=== PATIENT | male | born 1940 | race Caucasian/White ===

== ENCOUNTER 2021-09-11 08:00 | Outpatient (CLI) | payer OTHER ==
[2021-09-11 20:35] LABS: BASOPHILS # (AUTO) 0.1 10^3/uL (0.0-0.1); BASOPHILS % (AUTO) 0.8 %; EOSINOPHILS # (AUTO) 0.2 10^3/uL (0.0-0.7); EOSINOPHILS % (AUTO) 2.6 %; HCT - HEMATOCRIT 41.6 % (42.0-52.0); HGB - HEMOGLOBIN 13.1 g/dL (14.0-18.0); LYMPHOCYTES % (AUTO) 16.1 %; MEAN CORPUSCULAR HEMOGLOBIN 26.8 pg (27.0-31.0); MEAN CORPUSCULAR HGB CONC 31.5 g/dL (32.0-36.0); MEAN CORPUSCULAR VOLUME 85.2 fL (80.0-94.0); MEAN PLATELET VOLUME 9.8 fL (7.4-11.4); MONOCYTES # (AUTO) 0.5 10^3/uL (0.0-1.0); MONOCYTES % (AUTO) 7.8 %; NEUTROPHILS # (AUTO) 4.7 10^3/uL (1.5-6.6); NEUTROPHILS % (AUTO) 72.2 %; PLT - PLATELET COUNT 236 10^3/uL (130-450); RED BLOOD COUNT 4.88 10^6/uL (4.70-6.10); RED CELL DISTRIBUTION WIDTH 13.2 % (12.0-15.0); WHITE BLOOD COUNT 6.4 x10^3/uL (4.8-10.8)
[2021-09-11 20:37] LABS: ALBUMIN 3.7 g/dL (3.2-5.5); ALBUMIN/GLOBULIN RATIO 1.2 (1.0-2.2); BILIRUBIN,TOTAL 0.5 mg/dL (0.2-1.0); CALCIUM 9.2 mg/dL (8.5-10.3); CREATININE 0.9 mg/dL (0.6-1.2); POTASSIUM 3.7 mmol/L (3.5-5.0); TOTAL PROTEIN 6.9 g/dL (6.7-8.2)
== END 2021-09-11 23:59 ==
LOC: LAB.S 08:00
PROVIDERS: ATTEND Registered Nurse
DX: R30.0 Dysuria (principal)
CPT/HCPCS: 36415; 80053; 82550; 82553; 85025; 85651; 87086

== ENCOUNTER 2021-10-24 08:00 | Outpatient (CLI) | payer MEDICARE, MEDICAID ==
--- NOTE | 2021-10-24 14:23 | XRAY Report ---
PROCEDURE: Toe(s) RT INDICATIONS: CONTUSION OF GREAT TOE RIGHT FOOT TECHNIQUE: 3 views of the for toe(s) acquired. COMPARISON: None FINDINGS: Bones: There is a small nondisplaced vertical lucency at the articular surface of the distal first ph alanx, seen only on one view.. No suspicious bony lesions. Soft tissues: No suspicious soft tissue densities. IMPRESSION: Small nondisplaced vertical lucency at the articular surface at the base of the first distal phalanx. This could be artifactual. However, recommend correlation to point tenderness as underlying fracture cannot be definitively excluded given presence of recent trauma. Reviewed by: Juju Jordan MD on 10/24/2021 2:22 PM PDT Approved by: Juju Jordan MD on 10/24/2021 2:22 PM PDT Station ID: [id number]
== END 2021-10-24 23:59 | disposition home or self-care (01) ==
LOC: DI.S 08:00
PROVIDERS: ATTEND Physician Assistant Medical
DX: R93.6 Abnormal findings on diagnostic imaging of limbs (principal); T14.8XXA Other injury of unspecified body region, initial encounter
CPT/HCPCS: 87070; 87205

== ENCOUNTER 2021-10-24 08:00 | Outpatient (CLI) | payer MEDICARE | END 2021-10-24 08:01 | disposition home or self-care (01) | LOC: LAB.S 08:00 | PROVIDERS: ATTEND Physician Assistant Medical | DX: T14.8XXA Other injury of unspecified body region, initial encounter (principal) | CPT/HCPCS: 87070; 87205 ==

== ENCOUNTER 2022-11-17 08:00 | Outpatient (CLI) | payer MEDICARE, MEDICAID | END 2022-11-17 23:59 | disposition home or self-care (01) | LOC: LAB 08:00 | PROVIDERS: ATTEND Registered Nurse | DX: L03.90 Cellulitis, unspecified (principal) | CPT/HCPCS: 87070; 87181; 87205 ==

== ENCOUNTER 2022-12-05 10:30 | Outpatient (CLI) | payer MEDICARE, MEDICAID ==
--- NOTE | 2022-12-05 13:07 | XRAY Report ---
PROCEDURE: Shoulder 3 View LT INDICATIONS: SHOULDER PAIN LEFT TECHNIQUE: 3 views of the shoulder were acquired. COMPARISON: None. FINDINGS: Bones: No fracture or dislocation. Moderate acromioclavicular and mild to moderate glenohumeral dege nerative changes. Soft tissues: Prominent left hilar structures, probably prominent vessels in the setting of low lung volumes, but not well evaluated. Consider chest radiograph correlation. No suspicious calcifications . IMPRESSION: Degenerative bone/joint changes. If there is high concern for further derangement, consider MRI evalu ation. Prominent left pulmonary hilar suspected vascular structures, consider chest radiograph correlation. Reviewed by: Arslan Wilkes MD on 12/05/2022 1:05 PM PDT Approved by: Arslan Wilkes MD on 12/05/2022 1:05 PM PDT Station ID: [id number]
== END 2022-12-05 10:45 | disposition home or self-care (01) ==
LOC: DI.N 10:30
PROVIDERS: ATTEND Family Medicine
DX: M19.012 Primary osteoarthritis, left shoulder (principal)

== ENCOUNTER 2023-06-05 09:14 | Observation (INO) | payer MEDICARE, MEDICAID ==
--- NOTE | 2023-06-05 09:44 | ED Physician Documentation ---
PD HPI DYSPNEA - Stated complaint Stated Complaint: LIGHT HEADED/SOA - Chief complaint Chief Complaint: Cardiac - History obtained from History obtained from: Patient - History of Present Illness Timing - onset: How many weeks ago (2) Timing - onset during: Rest Timing - duration: Weeks (2) Timing - details: Abrupt onset, Still present Improved by: Rest Worsened by: Exertion Associated symptoms: Chest pain / discomfort. No: Fever, Cough, Hemoptysis, Wheezing Similar symptoms before: Has not had sx before Recently seen: Not recently seen - Additional information Additional information: 83-year-old Kurtis Becerra has a history of hypertension and osteoarthritis and about 2 weeks ago he began to feel palpitations at night in bed. He has subsequently developed exertional dyspnea which he noticed walking up a hill. He has persistence of these symptoms and today he developed some pain in his chest. He called the advice nurse who directed him to the hospital as she noted his heart rate to be over 130. The patient states that he has not otherwise been ill and he does not seem to notice this palpitation in his chest during the day. Review of Systems Constitutional: denies: Fever, Chills, Myalgias Eyes: denies: Decreased vision Ears: denies: Ear pain Nose: denies: Congestion Throat: denies: Oral lesions / sores, Sore throat Cardiac: reports: Chest pain / pressure, Palpitations. denies: Pedal edema, Calf pain Respiratory: reports: Dyspnea, Cough GI: denies: Abdominal Pain, Abdominal Swelling, Nausea, Vomiting, Constipation, Diarrhea : denies: Dysuria, Frequency PD PAST MEDICAL HISTORY - Past Medical History Cardiovascular: Hypertension, High cholesterol Respiratory: None Endocrine/Autoimmune: None GI: None : None HEENT: None Psych: None Musculoskeletal: Osteoarthritis Derm: None - Past Surgical History Past Surgical History: Yes General: Hiatal hernia repair Ortho: Hip replacement - Present Medications Home Medications: Ambulatory Orders Medication Instructions Recorded Confirmed Cholesterol 11/06/15 Heartpill 11/06/15 L.acidoph/L.rhamn/B.bif/B.long 1 mg PO DAILY 11/06/15 11/06/15 [Probiotic Acidophilus Biobeads] bisacodyL [Dulcolax] 1 mg PO DAILY 11/06/15 11/06/15 - Allergies Allergies/Adverse Reactions: Allergies Allergy/AdvReac Type Severity Reaction Status Date / Time No Known Drug Allergies Allergy Verified 11/06/15 06:29 - Social History Does the pt smoke?: No Smoking Status: Never smoker Does the pt drink ETOH?: Yes Does the pt have substance abuse?: No - Immunizations Immunizations are current?: Yes - POLST Patient has POLST: No PD ED PE NORMAL - Vitals Vital signs reviewed: Yes (tachy and hypertensive ) - General General: Alert and oriented X 3, No acute distress, Well developed/nourished - HEENT HEENT: Atraumatic, PERRL, EOMI - Neck Neck: Supple, no meningeal sign, No bony TTP - Cardiac Cardiac: No murmur, Other (rapid irregularly irregular heart rate) - Respiratory Respiratory: No respiratory distress, Clear bilaterally - Abdomen Abdomen: Soft, Non tender - Back Back: No CVA TTP, No spinal TTP - Derm Derm: Normal color, Warm and dry, No rash - Extremities Extremities: No deformity, No edema - Neuro Neuro: Alert and oriented X 3, mail sorter and delivery 2-12 intact, No motor deficit, No sensory deficit, Normal speech Eye Opening: Spontaneous Motor: Obeys Commands Verbal: Oriented GCS Score: 15 - Psych Psych: Normal mood, Normal affect Results - Vitals Vitals: Vital Signs - 24 hr 06/05/23 06/05/23 06/05/23 09:30 11:06 12:00 Temperature 36.5 C 36.8 C Heart Rate 130 H 131 H 126 H Respiratory 20 18 20 Rate Blood Pressure 138/88 H 120/99 H 114/94 H O2 Saturation 100 99 98 06/05/23 06/05/23 06/05/23 12:30 13:00 13:30 Temperature Heart Rate 132 H 128 H 130 H Respiratory 18 16 24 Rate Blood Pressure 117/97 H 123/100 H 125/100 H O2 Saturation 98 98 94 06/05/23 06/05/23 14:00 14:30 Temperature 36.8 C Heart Rate 128 H 128 H Respiratory 24 18 Rate Blood Pressure 126/100 H 122/95 H O2 Saturation 96 96 Oxygen O2 Source Room air - EKG (time done) 0933 EKG releavant findings:: EKG personally interpreted by author of this note. Relevant findings are: Rate: Rate (enter#) (135) Rhythm: Atrial fibrillation Ischemia: Q waves (inferior ) Compare to prior EKG: Changed from prior EKG (SPT 11-06-2015 rhythm has changed to afib and the rate is faster. ) Computer interpretation: Agree with computer - Labs Labs: Laboratory Tests 06/05/23 06/05/23 06/05/23 10:08 10:08 10:08 WBC 7.5 RBC 4.55 L Hgb 12.9 L Hct 40.6 L MCV 89.2 MCH 28.4 MCHC 31.8 L RDW 13.0 Plt Count 240 MPV 9.4 Neut # (Auto) 5.8 Lymph # (Auto) 1.0 L [place] # (Auto) 0.5 Eos # (Auto) 0.2 Baso # (Auto) 0.1 Absolute Nucleated RBC 0.00 Nucleated RBC % 0.0 D-Dimer Sodium 141 Potassium 3.4 L Chloride 107 Carbon Dioxide 27 Anion Gap 7.0 BUN 18 Creatinine 0.9 Estimated GFR (MDRD) 81 L Glucose 122 H Calcium 9.1 Magnesium 1.8 Total Bilirubin 0.7 AST 56 H ALT 80 H Alkaline Phosphatase 98 Troponin I High Sens 8.2 B-Natriuretic Peptide 509 H Total Protein 6.7 Albumin 3.9 Globulin 2.8 Albumin/Globulin Ratio 1.4 Lipase 18 Nasal Adenovirus (PCR) Nasal B. parapertussis DNA (PCR) Nasal Coronavir 229E PCR Nasal Coronavir HKU1 PCR Nasal Coronavir NL63 PCR Nasal Coronavir OC43 PCR Nasal Enterovir/Rhinovir PCR Nasal Influenza B PCR Nasal Influenza A PCR Nasal Parainfluen 1 PCR Nasal Parainfluen 2 PCR Nasal Parainfluen 3 PCR Nasal Parainfluen 4 PCR Nasal RSV (PCR) Nasal B.pertussis DNA PCR Nasal C.pneumoniae (PCR) Emanuel Human Metapneumo PCR Nasal M.pneumoniae (PCR) Nasal SARS-CoV-2 (PCR) 06/05/23 06/05/23 10:08 14:14 WBC RBC Hgb Hct MCV MCH MCHC RDW Plt Count MPV Neut # (Auto) Lymph # (Auto) [place] # (Auto) Eos # (Auto) Baso # (Auto) Absolute Nucleated RBC Nucleated RBC % D-Dimer 220.2 Sodium Potassium Chloride Carbon Dioxide Anion Gap BUN Creatinine Estimated GFR (MDRD) Glucose Calcium Magnesium Total Bilirubin AST ALT Alkaline Phosphatase Troponin I High Sens B-Natriuretic Peptide Total Protein Albumin Globulin Albumin/Globulin Ratio Lipase Nasal Adenovirus (PCR) NOT DETECTED Nasal B. parapertussis DNA (PCR) NOT DETECTED Nasal Coronavir 229E PCR NOT DETECTED Nasal Coronavir HKU1 PCR NOT DETECTED Nasal Coronavir NL63 PCR NOT DETECTED Nasal Coronavir OC43 PCR NOT DETECTED Nasal Enterovir/Rhinovir PCR NOT DETECTED Nasal Influenza B PCR NOT DETECTED Nasal Influenza A PCR NOT DETECTED Nasal Parainfluen 1 PCR NOT DETECTED Nasal Parainfluen 2 PCR NOT DETECTED Nasal Parainfluen 3 PCR NOT DETECTED Nasal Parainfluen 4 PCR NOT DETECTED Nasal RSV (PCR) NOT DETECTED Nasal B.pertussis DNA PCR NOT DETECTED Nasal C.pneumoniae (PCR) NOT DETECTED Emanuel Human Metapneumo PCR NOT DETECTED Nasal M.pneumoniae (PCR) NOT DETECTED Nasal SARS-CoV-2 (PCR) NOT DETECTED - Rads (name of study) Chest Relevant Findings:: Prelim report reviewed (Impression: Bilateral lower lobe interstitial infiltrates. Differential diagnoses are bilateral lower lobe pneumonia versus pulmonary edema.), EMP independent interpretation of test Procedures - IVC sono (time) 0953 Bedside IVC sono: IVC measures (cm) (0.92), Dehydration (est 1-2 liter deficit) PD Medical Decision Making - ED course Complexity details: reviewed old records, reviewed results, re-evaluated patient, considered differential, d/w patient Reviewed Lab Results: We reviewed a complete blood count showing a white blood count of 7.5 and hemoglobin of 12.9 hematocrit of 40.6 similar to patient's prior D-dimer was - 220 chemistry showed a potassium low at 3.4 AST and ALT were minimally elevated remainder of liver functions normal high-sensitivity troponin normal BNP elevated at 509 the viral nasal smear was negative. These laboratory results helped to rule out the pulmonary embolism as a cause of the patient's exertional dyspnea and it did help with ruling out an acute coronary syndrome. It does show the patient has not completely tolerated the rapid rate with elevation in the BNP. ED course: 83-year-old male with a 2-week history of night time palpitations has developed exertional dyspnea which has been progressive. He is found to have atrial fibrillation with rapid ventricular response and he is volume depleted. He is administered intravenous saline and diltiazem after placement on a engine monitor.Despite a dose of 20 mg of diltiazem the heart rate went from 140 to 130 a second dose of 25 mg resulted in reduction of the heart rate into the 120 range. The patient is placed onto a diltiazem drip and the drip is titrated from 5 to 10 to 15 mg/h and he is resistant to further decrease in his rate. His chest x-ray has appearance of pulmonary edema versus infiltrate and his BNP is elevated at 509. Troponin is negative. D-dimer is negative. At this point I have reached out to the hospitalist for admission for rate control and I have administered 50mg PO metoprolol tartrate. Departure - Departure Disposition: ED Place in Observation Clinical Impression: Atrial fibrillation with RVR
[2023-06-05] MEDS ORDERED: diltiaZEM INJ 5 MG/ML VIAL IVP STA ×2 (09:56→11:09)
[2023-06-05] MEDS ORDERED: SODIUM CHLORIDE 0.9% 1,000 ML IV STA (09:56)
[2023-06-05 10:22] LABS: BASOPHILS # (AUTO) 0.1 10^3/uL (0.0-0.1); BASOPHILS % (AUTO) 0.7 %; EOSINOPHILS # (AUTO) 0.2 10^3/uL (0.0-0.7); EOSINOPHILS % (AUTO) 2.7 %; HCT - HEMATOCRIT 40.6 % (42.0-52.0); HGB - HEMOGLOBIN 12.9 g/dL (14.0-18.0); LYMPHOCYTES % (AUTO) 12.6 %; MEAN CORPUSCULAR HEMOGLOBIN 28.4 pg (27.0-31.0); MEAN CORPUSCULAR HGB CONC 31.8 g/dL (32.0-36.0); MEAN CORPUSCULAR VOLUME 89.2 fL (80.0-94.0); MEAN PLATELET VOLUME 9.4 fL (7.4-11.4); MONOCYTES # (AUTO) 0.5 10^3/uL (0.0-1.0); MONOCYTES % (AUTO) 6.4 %; NEUTROPHILS # (AUTO) 5.8 10^3/uL (1.5-6.6); NEUTROPHILS % (AUTO) 77.3 %; PLT - PLATELET COUNT 240 10^3/uL (130-450); RED BLOOD COUNT 4.55 10^6/uL (4.70-6.10); WHITE BLOOD COUNT 7.5 x10^3/uL (4.8-10.8)
[2023-06-05 10:35] LABS: ALBUMIN 3.9 g/dL (3.2-5.5); ALBUMIN/GLOBULIN RATIO 1.4 (1.0-2.2); BILIRUBIN,TOTAL 0.7 mg/dL (0.2-1.0); CALCIUM 9.1 mg/dL (8.5-10.3); CREATININE 0.9 mg/dL (0.6-1.3); POTASSIUM 3.4 mmol/L (3.5-4.5); TOTAL PROTEIN 6.7 g/dL (6.4-8.9)
[2023-06-05] MEDS ORDERED: POTASSIUM CHLOR 10 MEQ/100 ML 10 MEQ/100 ML BAG IV STA (10:36)
[2023-06-05 10:43] LABS: TROPONIN I HIGH SENSITIVITY 8.2 ng/L (2.3-19.7)
[2023-06-05 10:57] LABS: MAGNESIUM 1.8 mg/dL (1.7-2.3)
--- NOTE | 2023-06-05 11:15 | XRAY Report ---
PROCEDURE: Chest 1 View X-Ray INDICATIONS: Chest pain TECHNIQUE: One view of the chest was acquired. COMPARISON: Chest x-ray, 11/06/2015. FINDINGS: Surgical changes and devices: None. Lungs and pleura: Bilateral lower lobe interstitial infiltrates. There is right diaphragmatic eventr ation. No pleural effusions or pneumothorax. Mediastinum: Mediastinal contours appear normal. Heart size is normal. Bones and chest wall: No suspicious bony lesions. Overlying soft tissues appear unremarkable. IMPRESSION: Bilateral lower lobe interstitial infiltrates. Differential diagnoses are bilateral lower lobe pneumo tate versus pulmonary edema. Reviewed by: Marsha Combs MD on 06/05/2023 11:13 AM PST Approved by: Marsha Combs MD on 06/05/2023 11:13 AM PST Station ID: [id number]
[2023-06-05] MEDS ORDERED: diltiaZEM INJ 125 MG in DEXTROSE 5% 100 ML IV STA (11:52)
[2023-06-05] MEDS ORDERED: METOPROLOL TARTRATE 50 MG TABLET PO STA (14:14)
[2023-06-05] MEDS ORDERED: ACETAMINOPHEN 325 MG TABLET PO PRN (15:00)
[2023-06-05] MEDS ORDERED: ONDANSETRON 4 MG/2 ML VIAL IVP PRN (15:00)
[2023-06-05] MEDS ORDERED: oxyCODONE 5 MG TABLET PO PRN (15:00)
[2023-06-05] MEDS ORDERED: ONDANSETRON ODT 4 MG TABLET TL PRN (15:00)
[2023-06-05] MEDS ORDERED: SODIUM CHLORIDE FLUSH 0.9% 10 ML SYRINGE IVP PRN (15:00)
[2023-06-05 15:12] LABS: B. PARAPERTUSSIS- RESP PCR PAN NOT DETECTED; B. PERTUSSIS- RESP PCR PANEL NOT DETECTED; C. PNEUMONIAE- RESP PCR PANEL NOT DETECTED; CORONAVIRUS 229E-RESP PCR NOT DETECTED; CORONAVIRUS HKU1-RESP PCR NOT DETECTED; CORONAVIRUS NL63-RESP PCR NOT DETECTED; CORONAVIRUS OC43-RESP PCR NOT DETECTED; HUMAN METAPNEUMOVIRUS NOT DETECTED; INFLUENZA A- RESP PCR PANEL NOT DETECTED; INFLUENZA B - RESP PCR PANEL NOT DETECTED; M. PNEUMONIAE- RESP PCR PANEL NOT DETECTED; PARAINFLUENZA VIRUS 1 NOT DETECTED; PARAINFLUENZA VIRUS 2 NOT DETECTED; PARAINFLUENZA VIRUS 3 NOT DETECTED; PARAINFLUENZA VIRUS 4 NOT DETECTED; RHINOVIRUS/ENTEROVIRUS NOT DETECTED; RSV- RESP PCR PANEL NOT DETECTED; SARS-CoV-2 -RESP PCR PANEL NOT DETECTED
--- NOTE | 2023-06-05 15:19 | HISTORY & PHYSICAL EXAMINATION ---
Chief Complaint - Chief Complaint Chief Complaint: Palpitation History of Present Illness - Admitted From Admitted From:: Home - History Obtained From [facility] History obtained from: Patient Exam Limitations: None - History of Present Illness HPI Comment/Other: 83-year-old male whose past medical history significant for hypertension and hyperlipidemia that was last seen in our emergency room in 2016 for some gastritis. His primary care provider is Dr. Radha Jama who is director of the primary care analytics team for the [facility] graphic staff. She also does clinic [facility] at the [place]. She has been his primary care provider since 1989. 2 weeks ago he started having what he felt was palpitations. He would lay down at night and he could really feel his heart. But during the day he felt fine but then he subsequently developed dyspnea on exertion when he walked up the hill. He denies any chest pain, edema, orthopnea. There is no swelling in his legs. He has had no recent change in his medications. He does not have any diarrhea or vomiting. He called the nurse line at the [facility] and the [facility] told him to come to the hospital. In our emergency room he was evaluated by the ER provider. Temperature was 36.5. Heart rate was 130. Respirations 20. Blood pressure 138/88. 100% saturated on room air. He was found to have atrial fibrillation on the EKG. Troponins were done and normal. BNP was slightly elevated at 509. Electrolytes had minimally low potassium at 3.4. BUN and creatinine were normal. Calcium and magnesium were normal. White scratch that CBC was normal. TSH was normal. Chest x-ray had bilateral lower lobe interstitial infiltrates with a differential diagnosis of either pneumonia versus pulmonary edema. The emergency room provider felt that he was a new onset A-fib. Ruled out an MA, ruled out thyroid disease, and did not feel PE was high in the differential. He gave him diltiazem injections twice. Metoprolol p.o. once. Patient still maintain a heart rate in the 130s so he started him on a diltiazem drip. Even with that the patient is still in the 130s. The case was discussed with the ER provider. We discussed that the differential diagnosis have been well-evaluated. Patient needed to be brought in for rate control. It is unknown when his A-fib started. Maybe 2 weeks ago but it is not clear. As such I am placing the patient in observation status in the ICU on a diltiazem drip and will aggressively begin giving him more medications to slow down his heart rate. I may also give him diuretics for the BNP and the changes of CHF on chest x-ray. History - Past Medical History Cardiovascular: reports: Hypertension, High cholesterol Respiratory: reports: None Neuro: reports: Peripheral neuropathy Endocrine/Autoimmune: reports: None GI: reports: None : reports: Other (Prostate cancer with resection) HEENT: reports: Chronic vision loss, Chronic hearing loss, Other (Cataracts. He is also going to see the eye doctor in June for some type of injection) Psych: reports: None Musculoskeletal: reports: Osteoarthritis, Chronic back pain Derm: reports: None MRSA Hx?: No - Past Surgical History General: reports: Cholecystectomy, Hiatal hernia repair Ortho: reports: Hip replacement, Spine surgery /COLLABORATIVE PHYSICIAN: reports: Other (TURP) HEENT: reports: Cataracts - Family & Social History Family History Comment/Other: Mom at age 65 of complications of angina. Dad in his 80s of complications of black lung as a minor. Sister in [place] is alive, healthy with no major medical issues. No children Living arrangement: At home Living Situation: Alone Social History Notes: Born and raised in [place]. Went into the [employer] for 3 years. Deployment in the [place] resulted in a love of photography. He has lived all over the country and ended up in [place]. Photography class sent him to [facility] and he followed with [facility] and has been living here since approximately 2011.Never smoked. Did drink when he was a [employer] but never had a problem with alcohol. No recreational substance abuse. Lives by himself in subsidized senior housing across the street from the hospital. Does not drive. [facility]. Leaves at 5 in the morning comes back at 6:00 at night. - Substance History Use: Uses substance without health or social issues: NONE Abuse: Recurrent use of substance despite neg consequences: NONE Dependence: Experiences withdrawal or developed tolerances: NONE - POLST Patient has POLST: No POLST Status: Full Code Meds/Allgy - Home Medications Home Medications: Ambulatory Orders Medication Instructions Recorded Confirmed Cholesterol 11/06/15 Heartpill 11/06/15 L.acidoph/L.rhamn/B.bif/B.long 1 mg PO DAILY 11/06/15 11/06/15 [Probiotic Acidophilus Biobeads] bisacodyL [Dulcolax] 1 mg PO DAILY 11/06/15 11/06/15 - Allergies Allergies/Adverse Reactions: Allergies Allergy/AdvReac Type Severity Reaction Status Date / Time No Known Drug Allergies Allergy Verified 11/06/15 06:29 Review of Systems - Constitutional Constitutional: denies: Fatigue, Fever, Chills, Malaise, Weakness, Poor appetite - Eyes Eyes: reports: Vision loss. denies: Pain, Irritation - Ears, Nose & Throat Ears, Nose & Throat: reports: Hearing loss. denies: Ear pain, Hearing aids, Tinnitus, Sore throat, Hoarseness - Cardiovascular Cariovascular: reports: Irregular heart rate, Palpitations, Exertional dyspnea, Decr. exercise tolerance - Respiratory Respiratory: reports: SOB with exertion. denies: Cough, Sputum production, Wheezing, SOB at rest - Gastrointestinal Gastrointestinal: denies: Abdominal pain, Abdominal distention, Constipation, Diarrhea, Change in bowel habits - Genitourinary Genitourinary: denies: Dysuria, Frequency, Urgency, Incontinence, Flank pain - Musculoskeletal Musculoskeletal: reports: Back pain, Stiffness. denies: Muscle pain - Integumentary Integumentary: reports: Other (He has had skin cancers removed in his back). denies: Rash, Pruritis - Neurological Neurological: reports: Other (Twice his feet have felt like they were "stuck to the ground" and he is fallen. He has an intermittent resting hand tremor.). denies: General weakness, Focal weakness, Headache, Dizziness, Memory problems, Pre-existing deficit - Psychiatric Psychiatric: denies: Depression, Anxiety, Suicidal, Delusions, Hallucinations - Endocrine Endocrine: denies: Polyuria, Polydypsia, Polyphagia - Hematologic/Lymphatic Hematologic/Lymphatic: denies: Anemia, Bruising, Petechiae Prior Level of Functionality: Independent with activities of daily living. Dresses himself, feeds himself. Lately he has been wondering if he needs a cane because he has had 2 falls, and he has developed intermittent hand tremors. He does not drive and [place] [facility] and it takes forever. He has been slowing down over the last few months but not in any meaningful way. He still able to do all the things he wants to do is just taking longer. He lives alone. He does have friends but not any social network that would be able to take care of him if he were to need help. He is only living relative lives in [place]. Exam - Vital Signs Reviewed Vital Signs: Yes Vital Signs: Vital Signs x48h Temp Pulse Resp BP Pulse Ox 06/05/23 14:30 128 H 18 122/95 H 96 06/05/23 14:00 36.8 C 128 H 24 126/100 H 96 06/05/23 13:30 130 H 24 125/100 H 94 06/05/23 13:00 128 H 16 123/100 H 98 06/05/23 12:30 132 H 18 117/97 H 98 06/05/23 12:00 36.8 C 126 H 20 114/94 H 98 06/05/23 11:06 131 H 18 120/99 H 99 06/05/23 09:30 36.5 C 130 H 20 138/88 H 100 - Physical Exam General Appearance: positive: No acute distress, Alert Eyes Bilateral: positive: PERRL, EOMI ENT: positive: Pharynx nml, No signs of dehydration Neck: positive: No JVD. negative: Stiff neck Respiratory: positive: No respiratory distress. negative: Wheezes, Rales, Rhonchi Cardiovascular: positive: Regular rate & rhythm (Within minutes of coming to the ICU he converted to sinus rhythm). negative: Tachycardia Peripheral Pulses: positive: 1+ Abdomen: positive: Non-tender, No organomegaly, Nml bowel sounds, No distention Skin: positive: Warm, Dry Extremities: positive: Full ROM, No pedal edema Neurologic/Psychiatric: positive: Oriented x3, CN's nml (2-12), Motor nml (Very faint tremor but it is not always present when he holds out his hands for me. No cogwheel rigidity. No bradykinesia of the face but there is minimal spontaneous smiling) Conclusion/Plan - Problem List (1) New onset atrial fibrillation Conclusion/Plan: Fast heart rate resulting in probable mild congestive heart failure. MA ruled out. TSH normal. Low probability of PE according to ER provider. Patient was started on diltiazem drip in the emergency room and still had difficulty with rate control so was transferred to the ICU. Once in the ICU, I gave him a 50 mg dose of metoprolol in addition to the 50 mg he got in the ER. He spontaneously converted to sinus rhythm on his own. He is now resting comfortably. Plan: Observation status Stop diltiazem drip and given Cardizem CD 120 mg daily Start eliquis 5 mg po bid for A [id number] score of 4 points. Age, sex, CHF on exam on the x-ray, hypertension give him the 4 points. He will need to follow-[facility] with [facility] for the next steps. Unfortunately our human performance technologist is not scheduled after . He will need to get an echo, probable stress test, and some type of monitoring device to verify whether this patient is staying in sinus rhythm or if he is going in and out of sinus with A-fib. I do not know his primary care provider is comfortable doing all of this workup on her own or will she refer him to cardiology? (2) Acute congestive heart failure Conclusion/Plan: At this point this patient does not have any history of cardiac disease. He has not had any recent MA. No history of rheumatic fever or valvular heart diseas e. He has not had COVID. Is not clear if he is Diastolic or systolic heart failure. However chest x-ray has bibasilar infiltrates, lung exam has crackles, and BNP is elevated. Plan: Lasix 20 mg IV push x 1 Repeat BMP in the morning. Qualifiers: Heart failure type: unspecified Qualified Code(s): I50.9 - Heart failure, unspecified (3) Hypokalemia Conclusion/Plan: po kdur for 40 meq x 1 then repeat BMP (4) Difficulty navigating healthcare system Conclusion/Plan: Although he is safely and successfully lived on the [place] and navigated the transit system to get to [place] for the last few years, it is getting more difficult for him. He is seeking to transfer his care to the [facility] in [place]. I told him that he should also seek to establish himself with a primary care provider on the [place]. He is interested in seeing a clinician either in [place] or [place]. I did ask him if he had plans for the future when he can no longer take care of himself. He plans on using his Medicaid benefit to get a [place] provider to help take care of him. When that is failing, he plans to transition to hospice. Tomorrow morning I will type up of list of providers at the [facility] in [place]. I will also email his primary care provider at the [place] and ask where his records should be sent for this encounter. And then I will give him a list of the care providers in the [facility] in [facility] that are taking patients. (5) History of fall Conclusion/Plan: He tells me that his "feet are stuck to the ground" a couple of times. Once was at the [place] where his rubber shoes got stuck on the linoleum at their floor and he fell. But he also describes feeling off balance more in the last few years. And he describes an intermittent hand tremor. I did share with him that he could have early Parkinson's disease and he was very unhappy with that news. I told him there is not much to do. The disease will either manifest itself or I could be wrong and is not going to manifest itself. But he should keep that in the back of his mind and share that with his primary care provider in case he needs to be referred to a future neurology appointment. In the meantime I strongly recommend he uses a cane to keep his balance. Especially in view of the fact that he has a peripheral neuropathy - Lab Results Lab results reviewed: Yes Mati Bones: 06/05/23 10:08 06/05/23 10:08 - EKG Results EKG Interpreted Independently: No Core Measures - Anticipated LOS I expect patient to be DC'd or transferred within 96 hours.: Yes - DVT/VTE - Prophylaxis VTE/DVT Prophylaxis med ordered at admit?: Yes
[2023-06-05] MEDS ORDERED: FUROSEMIDE 20 MG/2 ML VIAL IVP STA (15:20)
[2023-06-05] MEDS: SODIUM CHLORIDE FLUSH 0.9% 10 ML SYRINGE IVP SCH (17:29)
[2023-06-05] MEDS ORDERED: diltiaZEM 30 MG TABLET PO SCH (18:00)
[2023-06-05] MEDS: diltiaZEM CD 120 MG CAPSULE PO SCH (18:54)
[2023-06-05] MEDS ORDERED: diltiaZEM INJ 125 MG in DEXTROSE 5% 100 ML IV SCH (21:00)
[2023-06-05] MEDS: POTASSIUM CHLORIDE 20 MEQ TABLET PO SCH ×2 (21:23→23:39)
[2023-06-05] MEDS: APIXABAN 5 MG TABLET PO SCH (21:24)
[2023-06-05] MEDS: METOPROLOL TARTRATE 50 MG TABLET PO SCH (21:24)
[2023-06-06] MEDS: SODIUM CHLORIDE FLUSH 0.9% 10 ML SYRINGE IVP SCH ×3 (00:04→10:57)
[2023-06-06 05:27] LABS: CALCIUM, IONIZED 1.13 mmol/L (1.15-1.33); VBG PH 7.419 (7.31-7.41)
[2023-06-06 06:07] LABS: MAGNESIUM 1.7 mg/dL (1.7-2.3); PHOSPHORUS 4.2 mg/dL (2.5-5.0)
[2023-06-06 06:09] LABS: CREATININE 0.8 mg/dL (0.6-1.3); POTASSIUM 3.8 mmol/L (3.5-4.5)
[2023-06-06] MEDS ORDERED: POTASSIUM CHLORIDE 20 MEQ TABLET PO ONE (06:25)
[2023-06-06] MEDS ORDERED: MAGNESIUM OXIDE 400 MG TABLET PO SCH (08:00)
[2023-06-06] MEDS: diltiaZEM CD 120 MG CAPSULE PO SCH (09:18)
[2023-06-06] MEDS: METOPROLOL TARTRATE 50 MG TABLET PO SCH (09:18)
[2023-06-06] MEDS: APIXABAN 5 MG TABLET PO SCH (09:18)
[2023-06-06] MEDS ORDERED: FUROSEMIDE 20 MG/2 ML VIAL IVP STA (10:36)
--- NOTE | 2023-06-06 10:39 | PHARMACY PROGRESS NOTE ---
- Best Possible Medication History Admit Date and Time: 06/05/23 1500 Processed by: Pharmacy Medication History completed: Yes Patient Interview: Pt interview ONLY source As the person ultimately responsible for medication therapy, providers are able to order a medication from an existing home medication list in [facility] via the "Reconcile Routine" prior to Confirmation of that medication by residential support specialist. Such practice is discouraged except when the physician, in their clinical judgment, deems that a medical need exists for a medication without regard to previous use.
--- NOTE | 2023-06-06 11:13 | Discharge Plan ---
Discharge Plan Problem Reviewed?: Yes Disposition: Home, Self Care Condition: Fair Prescriptions: diltiaZEM CD [Cardizem Cd] 120 mg PO DAILY #30 Apixaban [Eliquis] 5 mg PO BID #60 tablet Furosemide [Lasix] 20 mg PO DAILY #30 tablet Potassium Chloride 20 meq PO DAILY #30 tab Rivaroxaban [Xarelto] 20 mg PO DAILY #30 tablet Diet: Low Sodium Activity Restrictions: Activity as Tolerated Shower Restrictions: No Driving Restrictions: No Health Concerns: You walked to our emergency room from your home because you would call the [place] nurse line and they recommended you come in. You have been having palpitations for about 2 weeks and had also subsequently developed dyspnea or shortness of breath with exertion. When he came to our emergency room you were found to have a new irregular heart rate called atrial fibrillation. Your atrial fibrillation had a very fast heart rate for a gentleman your age. You are at approximately 130 or 140 heart beats per minute. This was then causing you to have mild congestive heart failure with fluid back up into your lungs. We started you on medication to slow down your heart rate. I gave you a diuretic which makes you urinate quite a bit. Your heartbeat then return to a normal sinus rhythm on its own. Atrial fibrillation can increase your risk of stroke because the irregular heart rate causes small clots to develop within your heart chambers. Then 1 of those clots can be pumped out of your heart, downstream, into your brain to give you a small stroke. The risk is about 8 to 12%. To reduce that risk I started you on a blood thinner. Plan of Treatment: 1. I have called 2 blood thinners into the pharmacy. One is Xarelto and one is Eliquis. I am having the pharmacist decide which is cheaper for you and that is the prescription you will pickle solution maker on Thursday. If you pickle solution maker Xarelto it is a 20 mg tablet once a day. If you pickle solution maker Eliquis it is 5 mg tablet twice a day. Since the pharmacy is not open today, you will be sent home with the blood thinner to cover you until Thursday morning when you pickle solution maker the prescriptions. 2. Because you are now on a blood thinner you cannot take any medications such as aspirin, ibuprofen, Aleve, Naprosyn, diclofenac, Motrin, etc. The only [id number] pain medicine you can take is Tylenol. Or acetaminophen. 3. You need to follow-up with your primary care provider Abby Jama who is your primary care provider at the [facility] in [place]. I have already sent her an email notifying her that you are here. I also sent her a fax. I would like you to see her in the next 1 to 2 weeks. If you cannot see her, see anybody in her clinic. And if you cannot get any body to see you in the next 2 to 3 weeks, please go to the urgent care clinic in [place] to have continuity of care. 4. To continue working up why you went into can just of heart failure and atrial fibrillation, the next steps are to get an echocardiogram of your heart. It is an ultrasound of your heart. And most likely will also need a stress test. Those 2 tests will determine the prognosis of your atrial fibrillation. It would let us know how long you will be on medications. So Dr. Jama may choose to order them on her own, or she will refer you to a inpatient nursing aide. 5. Because the atrial fibrillation gave you temporary congestive heart failure, I am also sending you home on a water pill called Lasix/furosemide 20 mg tablet once a day. And potassium supplement in the form of potassium chloride/K-Dur 20 mEq once a day. 6. To keep your heart rate and irregular rhythm, I am prescribing Cardizem CD 120 mg capsule once a day. You will stop your amlodipine that is on the list that you keep in a laminated card in your wallet. 7. You stated that it is getting a little bit hard for [facility] to get [facility]. You take the [place] transit down to [place]. Get on the ferr. And they take transit to the [place]. 1 visit starts at 5:30 in the morning and can last you till 6:30 in the evening before you get home. As such, I am recommending that you might want to consider changing your care to a different clinic office. Option #1 is to transfer your care to the [facility] in [place]. [address] [facility] [phone] Option #2 is to stay with the [facility]. Because you have Medicaid, you can get a Medicaid voucher for a cab will take you to your appointment. They Would wait and bring you back. You were told about this but you feel self-conscious about doing this because you would be taking up an en tire cab just for yourself. That is what Medicaid is for. To allow you to have the opportunities that allow you to maintain stable relationship with your doctor and maintain stable medical care. Option #3 is to continue seeing your primary care provider once a year at the [place]. But change most of your quarterly care where you are seen every 3 months at a local clinic, [facility]. They have Primary Care [address] in [place] [phone] and Primary Care in [place] [phone]. Linda Prescott and Yolette Moreno in [place]. Leyda Fabian and Alexandria Verdin in [place]. Please call those clinics to establish yourself there if you want to. Again, you can also see your primary care provider in [facility] once a year to maintain that relationship as well as the one [place] the [place]. Care Goals: You would like to be able to have this new medical issue taking care of as soon as possible. Long-term goal is to remain in your apartment for as long as possible. Once you can no longer take care of yourself you are hoping to avail yourself of the [employer]OH[employer] program through Medicaid to stay in your apartment. If you are starting to become ill enough that you would have to leave your [place] for [facility], you would prefer to be transition to hospice Assessment: Patient is alert, oriented, occasionally forgetful. Overwhelmed with too much data at once. But is using opportunities through [employer], and social work. No Smoking: If you smoke, Please STOP! Call for help.
[2023-06-06 14:30] VITALS: BP 124/84; O2SAT 96
--- NOTE | 2023-06-06 20:20 | DISCHARGE SUMMARY ---
Discharge Summary Admit Date: 06/05/23 Discharge Date: 06/06/23 Discharging Provider: Peggy Knutson MD Primary Care Provider: Radha Jama MD Code Status: Attempt Resuscitation Condition at Discharge: Fair Discharge Disposition: 01 Home, Self Care - DIAGNOSES Discharge Diagnoses with Status of Each Condition: 1. New onset atrial fibrillation 2. Acute congestive heart failure 3. Hypokalemia 4. Difficulty navigating healthcare system 5. History of fall - HPI History of Present Illness: 83-year-old male whose past medical history significant for hypertension and hyperlipidemia that was last seen in our emergency room in 2016 for some gastritis. His primary care provider is Dr. Radha Jama who is director of the primary care analytics team for the [facility] graphic staff. She also does clinic on at the [place]. She has been his primary care provider since 1989. 2 weeks ago he started having what he felt was palpitations. He would lay down at night and he could really feel his heart. But during the day he felt fine but then he subsequently developed dyspnea on exertion when he walked up the hill. He denies any chest pain, edema, orthopnea. There is no swelling in his legs. He has had no recent change in his medications. He does not have any diarrhea or vomiting. [facility] [place] [facility] In our emergency room he was evaluated by the ER provider. Temperature was 36.5. Heart rate was 130. Respirations 20. Blood pressure 138/88. 100% saturated on room air. He was found to have atrial fibrillation on the EKG. Troponins were done and normal. BNP was slightly elevated at 509. Electrolytes had minimally low potassium at 3.4. BUN and creatinine were normal. Calcium and magnesium were normal. White scratch that CBC was normal. TSH was normal. Chest x-ray had bilateral lower lobe interstitial infiltrates with a differential diagnosis of either pneumonia versus pulmonary edema. The emergency room provider felt that he was a new onset A-fib. Ruled out an DC, ruled out thyroid disease, and did not feel PE was high in the differential. He gave him diltiazem injections twice. Metoprolol p.o. once. Patient still maintain a heart rate in the 130s so he started him on a diltiazem drip. Even with that the patient is still in the 130s. The case was discussed with the ER provider. We discussed that the differential diagnosis have been well-evaluated. Patient needed to be brought in for rate control. It is unknown when his A-fib started. Maybe 2 weeks ago but it is not clear. As such I am placing the patient in observation status in the ICU on a diltiazem drip and will aggressively begin giving him more medications to slow down his heart rate. I may also give him diuretics for the BNP and the changes of CHF on chest x-ray. - Past Medical History Cardiovascular: reports: Hypertension, High cholesterol Respiratory: reports: None Neuro: reports: Peripheral neuropathy Endocrine/Autoimmune: reports: None GI: reports: None : reports: Other (Prostate cancer with resection) HEENT: reports: Chronic vision loss, Chronic hearing loss, Other (Cataracts. 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 DC ruled out. TSH normal. Low probability of PE according to ER provider. Patient was started on diltiazem drip in the emergency room and still had difficulty with rate control so was transferred to the ICU. Once in the ICU, I gave him a 50 mg dose of metoprolol in addition to the 50 mg he got in the ER. He spontaneously converted to sinus rhythm on his own. He is now resting comfortably. I changed him to Cardizem CD 120 mg a day. Because of his Chads-Vasc of 4 points he was started on Eliquis. Eliquis is on our drug formulary. I explained to him that he will need outpatient workup with his primary care provider. He will need an echocardiogram, probably a stress test, and a monitoring device to verify whether this patient is staying in sinus rhythm or if he is going in and out of atrial fibrillation. I explained to him that his primary care provider may be ordering all of this or may be referring him to a porcelain technician to do this. We were also unclear about what his prescription plan would pay for. As such I sent Xarelto, Eliquis, and Pradaxa to the pharmacy asking which was cheapest. The patient was discharged. We gave him enough medication to get him through the weekend and Thursday morning he spoke to the pharmacy. The Pradaxa was $200 a month. The Eliquis was close to $500 a month. And Xarelto was most expensive at close to $800 a month. The patient is on a fixed limited income. We then thought about doing Coumadin. But because he uses the [place] as his primary care clinic, there is no way he can go to a Coumadin clinic once a day to adjust his Coumadin. Our case specialist then spoke to his primary care provider office. They have asked us to fax our choice of medications which will be Xarelto at 20 mg a day. And fax the medications to the [place] pharmacy at [phone]. To make sure that we use his last 4 if his social security number on the prescriptions and they will overnight send medication to him. As such I have written for his Lasix, potassium, Xarelto, and Cardizem CD. (2) Acute congestive heart failure Conclusion/Plan: At this point this patient does not have any history of cardiac disease. He has not had any recent DC. No history of rheumatic fever or valvular heart disease. He has not had COVID. Is not clear if he is Diastolic or systolic heart failure. However chest x-ray has bibasilar infiltrates, lung exam has crackles, and BNP is elevated.He received Lasix IV push in the hospital. I changed him over to Lasix p.o. in the outpatient setting. I explained to him that I do not know how long he will need this. If his echocardiogram comes back normal, he is acute congestive heart failure may have been due to tachycardia and he may be able to come off of these. But again he needs to follow-up with his primary care provider or porcelain technician about what is going to happen. (3) Hypokalemia Conclusion/Plan: He received potassium I supplemented his potassium orally. At discharge he will be getting Lasix and a potassium prescription. He will need a BMP and a BNP in the next week. (4) Difficulty navigating healthcare system Conclusion/Plan: Although he is safely and successfully lived on the [place] and [facility] [facility] the [facility], it is getting more difficult for him. He is seeking to transfer his care to the [facility] in [place]. I told him that [place]. [place] a clinician either in [place] or [place]. I did ask him if he had plans for the future when he can no longer take care of himself. He plans on using his Medicaid benefit to get a coax provider to help take care of him. When that is failing, he plans to tra nsition to hospice. I have given him a list and phone numbers of the [facility] clinics in [place] and [place]. I have also emailed his primary care provider at the [place] and asked where I could send his records. I also gave him the list of the primary care providers in our community clinics in [place] and [place]. (5) History of fall Conclusion/Plan: He tells me that his "feet are stuck to the ground" a couple of times. [facility] got stuck on the linoleum at their floor and he fell. But he also describes feeling off balance more in the last few years. And he describes an intermittent hand tremor. I did share with him that he could have early Parkinson's disease and he was very unhappy with that news. I told him there is not much to do. The disease will either manifest itself or I could be wrong and is not going to manifest itself. But he should keep that in the back of his mind and share that with his primary care provider in case he needs to be referred to a future neurology appointment. In the meantime I strongly recommend he uses a cane to keep his balance. Especially in view of the fact that he has a peripheral neuropathy At discharge he is alert oriented elderly gentleman. It was a pleasure to have met him in taking care of him. Temperature is 36.9. Pulse is 69 and sinus. Blood pressure 124/84. Respirations 20. 96% on room air. He is 5 foot 11 inches tall, 97 kg. No JVD. Clear lungs. Regular rate and rhythm. And abdomen that soft, nontender. Extremities with trace edema. This document was made in part using voice recognition software. While efforts are made to proofread this document, sound alike and grammatical errors may occur. - ALLERGIES Allergies/Adverse Reactions: Allergies Allergy/AdvReac Type Severity Reaction Status Date / Time No Known Drug Allergies Allergy Verified 11/06/15 06:29 - MEDICATIONS Home Medications: Ambulatory Orders Medication Instructions Recorded Confirmed Rivaroxaban [Xarelto] 20 mg PO DAILY #30 tablet 06/05/23 Aspirin Chewable [St Isauro 81 mg PO DAILY 06/06/23 06/06/23 Aspirin] Furosemide [Lasix] 20 mg PO DAILY #30 tablet 06/06/23 Multivitamin [Theragran] 1 each PO DAILY 06/06/23 06/06/23 Potassium Chloride 20 meq PO DAILY #30 tab 06/06/23 diltiaZEM CD [Cardizem Cd] 120 mg PO DAILY #30 06/06/23 Atorvastatin Calcium [Lipitor] 80 mg PO QPM 06/07/23 06/07/23 Omeprazole Magnesium 20 mg PO DAILY 06/07/23 06/07/23 lamoTRIgine [LaMICtal] 50 mg PO BID 06/07/23 06/07/23 - LABS Result Diagrams: 06/05/23 10:08 06/06/23 04:28
== END 2023-06-06 13:35 | disposition home or self-care (01) ==
LOC: ED 09:14 → ICU 15:00
PROVIDERS: ADMIT Specialist; ATTEND Specialist
DX: I48.91 Unspecified atrial fibrillation (principal); I11.0 Hypertensive heart disease with heart failure; I50.9 Heart failure, unspecified; E78.00 Pure hypercholesterolemia, unspecified; Z91.81 History of falling; E87.6 Hypokalemia; R91.8 Other nonspecific abnormal finding of lung field; R25.1 Tremor, unspecified; G62.9 Polyneuropathy, unspecified; Z85.46 Personal history of malignant neoplasm of prostate
CPT/HCPCS: 36415; 71045; 80048; 80053; 82330; 83690; 83735; 83880; 84100; 84132; 84484; 85025; 85379; 87633; 93005; 96374; 96375; 96376; 99284; 99285; A9270; G0378

== ENCOUNTER 2023-06-09 18:45 | Emergency (ER) | payer MEDICARE, MEDICAID ==
[2023-06-09] MEDS ORDERED: APIXABAN 5 MG TABLET PO STA (19:13)
--- NOTE | 2023-06-09 19:17 | ED Physician Documentation ---
History of Present Illness - Stated complaint Stated Complaint: CHEST PX/HBP - Chief complaint Chief Complaint: Cardiac - History obtained from History obtained from: Patient - History of Present Illness Timing: Today Pain level max: 0 Pain level now: 0 - Additonal information Additional information: Patient is an 83-year-old male who states he was admitted to the hospital recently and diagnosed with new onset atrial fibrillation with rapid ventricular response. He states that today he was at home and checked his blood pressure and it was in the 140s systolic. He checked it again and it was in the 150s. He checked it a third time and it went to 160. He decided he should come to the hospital at that point. His heart rate also increased from 68-72 during this time. He did not have any shortness of breath, headache, numbness or tingling. He is asymptomatic. He does state that he had a "half of the second" of left- sided chest discomfort. Review of Systems Constitutional: denies: Fever, Chills Nose: denies: Rhinorrhea / runny nose, Congestion GI: denies: Vomiting, Diarrhea Skin: denies: Rash Musculoskeletal: denies: Neck pain, Back pain Neurologic: denies: Headache, Head injury PD PAST MEDICAL HISTORY - Past Medical History Past Medical History: Yes Cardiovascular: Hypertension, High cholesterol Respiratory: None Neuro: Peripheral neuropathy Endocrine/Autoimmune: None GI: None : Other HEENT: Chronic vision loss, Chronic hearing loss, Other Psych: None Musculoskeletal: Osteoarthritis, Chronic back pain Derm: None - Past Surgical History Past Surgical History: Yes General: Cholecystectomy, Hiatal hernia repair Ortho: Hip replacement, 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) HEENT: Cataracts - Present Medications Home Medications: Ambulatory Orders Medication Instructions Recorded Confirmed Rivaroxaban [Xarelto] 20 mg PO DAILY #30 tablet 06/05/23 Aspirin Chewable [St Isauro 81 mg PO DAILY 06/06/23 06/06/23 Aspirin] Furosemide [Lasix] 20 mg PO DAILY #30 tablet 06/06/23 Multivitamin [Theragran] 1 each PO DAILY 06/06/23 06/06/23 Potassium Chloride 20 meq PO DAILY #30 tab 06/06/23 diltiaZEM CD [Cardizem Cd] 120 mg PO DAILY #30 06/06/23 Atorvastatin Calcium [Lipitor] 80 mg PO QPM 06/07/23 06/07/23 Omeprazole Magnesium 20 mg PO DAILY 06/07/23 06/07/23 lamoTRIgine [LaMICtal] 50 mg PO BID 06/07/23 06/07/23 - Allergies Allergies/Adverse Reactions: Allergies Allergy/AdvReac Type Severity Reaction Status Date / Time No Known Drug Allergies Allergy Verified 06/09/23 19:04 - Social History Does the pt smoke?: No Smoking Status: Never smoker Does the pt drink ETOH?: Yes Does the pt have substance abuse?: No - Immunizations Immunizations are current?: Yes - POLST Patient has POLST: No POLST Status: Full Code PD ED PE NORMAL - Vitals Vital signs reviewed: Yes - General General: Alert and oriented X 3, No acute distress - HEENT HEENT: PERRL, Moist mucous membranes - Neck Neck: Supple, no meningeal sign - Cardiac Cardiac: RRR, Strong equal pulses - Respiratory Respiratory: No respiratory distress, Clear bilaterally - Abdomen Abdomen: Soft, Non tender, Non distended - Derm Derm: Warm and dry - Extremities Extremities: No edema, No calf tenderness / cord - Neuro Neuro: Alert and oriented X 3 - Psych Psych: Normal mood, Normal affect Results - Vitals Vitals: Vital Signs - 24 hr 06/09/23 06/09/23 18:48 19:25 Temperature 36.6 C Heart Rate 70 70 Respiratory 16 20 Rate Blood Pressure 149/83 H 148/84 H O2 Saturation 96 94 Oxygen O2 Source Room air - EKG (time done) 1852 EKG releavant findings:: EKG personally interpreted by author of this note. Relevant findings are: Rate: Rate (enter#) (71) Rhythm: NSR [place]: Normal Intervals: Normal OR QRS: Normal Ischemia: Normal ST segments, Other (early R wave transition) PD Medical Decision Making - ED course Complexity details: considered differential, d/w patient ED course: In accordance with the [facility] clinical policy from July 2012, this patient has asymptomatic elevated blood pressure without evidence of acute target organ injury. There are also no signs of acute stroke, cardiac ischemia, pulmonary edema, encephalopathy or acute congestive heart failure. Therefore the patient will be referred to their primary care provider for follow-up of their asymptomatic hypertension. No indication for laboratory testing at this time. Patient will follow-up with his doctor for further care. Patient counseled r egarding signs and symptoms for which I believe and urgent re-evaluation would be necessary. Patient with good understanding of and agreement to plan and is comfortable going home at this time This document was made in part using voice recognition software. While efforts are made to proofread this document, sound alike and grammatical errors may occur. Of note patient has not had his Xarelto for the past 2 days, therefore was given a dose of Eliquis here while he awaits his shipment in the mail. Departure - Departure Disposition: Home, Self Care Clinical Impression: Hypertension Qualifiers: Hypertension type: unspecified Qualified Code(s): I10 - Essential (primary) hypertension Condition: Good Instructions: ED HTN Established Follow-Up: Radha Jama MD [Primary Care Provider] - Within 1 week Comments: Your blood pressure has decreased on its own here. Please take your medications as prescribed at home. Please follow-up with your doctor as needed for further care. Return if you develop chest pain, shortness of breath, severe headache or other new or worrisome symptoms. Forms: PCP List Discharge Date/Time: 06/09/23 19:32
[2023-06-09 19:30] VITALS: BP 148/84; O2SAT 94
[2023-06-09] MEDS ORDERED: ACETAMINOPHEN 325 MG TABLET PO STA (19:32)
== END 2023-06-09 19:32 | disposition home or self-care (01) ==
LOC: ED 18:45
DX: I10 Essential (primary) hypertension (principal); I48.91 Unspecified atrial fibrillation; Z79.01 Long term (current) use of anticoagulants
CPT/HCPCS: 99282; 99283; A9270

== ENCOUNTER 2024-02-20 10:35 | Outpatient (CLI) | payer MEDICARE, OTHER, MEDICAID ==
--- NOTE | 2024-02-21 21:34 | XRAY Report ---
PROCEDURE: Chest 2V INDICATIONS: CHEST WALL PAIN TECHNIQUE: 2 views of the chest were acquired. COMPARISON: CXR 06/05/2023. FINDINGS: Surgical changes and devices: Cholecystectomy clips. Lungs and pleura: No pleural effusions or pneumothorax. Lungs are clear. Mediastinum: Mediastinal contours appear normal. Right hemidiaphragm eventration. Heart size is norm al. Bones and chest wall: No suspicious bony lesions. Overlying soft tissues appear unremarkable. IMPRESSION: No acute cardiopulmonary process. CT could be considered for further evaluation. Reviewed by: Claudio Mccauley MD on 02/21/2024 9:32 PM PDT Approved by: Claudio Mccauley MD on 02/21/2024 9:32 PM PDT Station ID: [id number]
== END 2024-02-20 10:36 | disposition home or self-care (01) ==
LOC: DI 10:35
PROVIDERS: ATTEND Physician Assistant
DX: R07.89 Other chest pain (principal)